=== PATIENT | male | born 1955 | race Caucasian/White ===

== ENCOUNTER → 2018-01-14 | Outpatient (CLI) | payer BC ==
[~2018-01-14] MED LIST: B12 TOP; IBUP-103 PO; NAPR1TAB9 PO; SILD100T PO; ZINC TOP
[2018-01-14 11:22] LABS: BLOOD UREA NITROGEN 14 mg/dl (7-18); CALCIUM 9.1 mg/dl (8.5-10.1); CARBON DIOXIDE 30 mmol/L (21-32); CHOLESTEROL 181 mg/dl (0-200); CREATININE 1.05 mg/dl (0.60-1.40); GLUCOSE 102 mg/dl (70-99); SODIUM 138 mmol/L (136-145)
[2018-01-14 11:27] LABS: LDL CHOLESTEROL CALCULATED 101 mg/dl
== END | disposition home or self-care (01) ==
LOC: C.LABBC 07:56
PROVIDERS: ATTEND Family Medicine
DX: Z00.00 Encounter for general adult medical examination without abnormal findings (principal); E78.5 Hyperlipidemia, unspecified; R73.03 Prediabetes; I10 Essential (primary) hypertension; Z12.5 Encounter for screening for malignant neoplasm of prostate

== ENCOUNTER 2019-09-22 07:57 | Inpatient (IN) ==
--- NOTE | 2019-08-24 11:48 | PAT Medication Instructions ---
Medication Instructions Date of Service August 24, 2019 Home Medications lisinopril 10 mg PO QAM sildenafil [Viagra] 100 mg PO DAILY PRN ibuprofen [Advil] 400 mg PO QID PRN ASK your surgeon for instructions ibuprofen [Advil] 400 mg PO QID PRN DO NOT take the morning of surgery lisinopril 10 mg PO QAM sildenafil [Viagra] 100 mg PO DAILY PRN Other Notes If you have any questions please call us at [phone] or [phone] or [phone] or [phone]
--- NOTE | 2019-08-28 11:53 | Anesthesiology Consultation ---
Date of Service August 28, 2019 Assessment & Plan (1) Encounter for pre-operative examination: Chart Review Chart Review: Acceptable Risk for Surgery and Patient seen in Pre Admission Testing Consults Requested none Teaching & Discussion Pre-Anesthesia Teaching/Discussion Notes: Instructed NPO after midnight before surgery,except medications with 15 cc of water. Medication instructions provided according to the PAT guidelines. History Surgery Operation Date: 09/22/19 10:00 Proposed Procedures p Right Anterior Total Hip Arthroplasty - Zeke Templeton DO Height/Weight Height: 5 ft 10 in Weight: 98 kg Allergies Allergy/AdvReac Type Severity Reaction Status Date / Time bee venom protein (honey bee) Allergy Mild local Verified 08/22/19 14:37 swelling Medications Home Medications Medication Instructions Recorded Confirmed Last Taken lisinopril 10 mg PO QAM 12/26/18 08/22/19 01/11/19 sildenafil [Viagra] 100 mg PO DAILY PRN 12/26/18 08/22/19 12/31/18 ibuprofen [Advil] 400 mg PO QID PRN 08/22/19 08/22/19 Unknown Past Medical History Medical History Cancer BCC (nose) Diverticulitis Hypertension Obesity Osteoarthritis Exercise / Class Metabolic Activity II 4-5 Yardwork/Stairs/Walk up hill (one flight of stairs (no chest pain/no sob)) Past Surgical History Surgical History History of arthroscopy LEFT KNEE History of bowel resection FOR DIVERTICULITIS History of colonoscopy History of colostomy reversal History of herniorrhaphy LEFT INGUINAL History of tooth extraction Hx of vasectomy Past Anesthesia History No Hx of Anesthesia Complications and No Family Hx of Anesthesia Complications History of PONV No Hx of PONV and No Hx of Motion Sickness Social History Smoking Status: Never smoker Do You Dip or Chew Tobacco: No Hx Alcohol Use: Yes Alcohol type: beer, wine and hard liquor alcohol intake frequency: a few times a week Hx Substance Use: No substance use type: does not use Review of Systems Patient denies chest pain, shortness of breath, dyspnea on exertion, joint pain, reflux, cough, wheezing, palpitations. Physical Exam Vital Signs VITALS BP 149/93 (patient states he forgot to take BP medication this AM/advised compliance importance) P 67 TEMP 98.1 SP02 95%RA RESP 18 PHYSICAL Full neck and c-spine range of motion. Full TMJ range of motion. TMD 3.5 finger breaths Mallampati Score 3 Dentition: several crowns "all over", temporary crown upper right side Lungs: clear throughout to auscultation Cardiac: regular rate and rhythm, no murmurs noted Spine: normal Carotid arteries: negative bruit Extremities: no edema Testing Laboratory Results 08/28/19 11:50 08/28/19 11:50 PT 10.5 Seconds (9.0-12.0) 08/28/19 11:50 INR 1.0 (0.9-1.1) 08/28/19 11:50 APTT 24.8 Seconds (21.0-31.0) 08/28/19 11:50 Blood Type O Positive 08/28/19 11:15 Antibody Screen NEGATIVE 08/28/19 11:15 Electrocardiogram Date: 08/28/19 Findings: + NSR @ (65) Chest X-Ray Date: 08/28/19 Findings: + NAD
--- NOTE | 2019-08-28 12:39 | XRay Report ---
XR chest Pre-admission PA/Lat HISTORY: Preop. COMPARISON: Chest 01/15/2014. FINDINGS: The lungs are clear. Cardiac silhouette is normal in size. No pleural effusions. No pneumot horax. IMPRESSION: No acute process. Electronically signed by: Adan Bonilla M.D. 08/28/2019 12:38 PM
[2019-08-28 13:32] LABS: Basophils # (auto) 0.03 K/uL (0-0.2); Basophils % (auto) 0.4 %; Eosinophils # (auto) 0.07 K/uL (0-0.5); Eosinophils % (auto) 0.9 %; Hemoglobin 15.3 g/dL (14.0-18.0); Immature Granulocytes # (auto) 0.02 K/uL (0.00-0.02); Immature Granulocytes % (auto) 0.3 %; Lymphocytes # (auto) 1.19 K/uL (1.2-3.4); Lymphocytes % (auto) 16.1 %; Mean Corpuscular Hemoglobin 31.1 pg (25-34); Mean Corpuscular Hgb Conc 33.3 g/dL (32-36); Mean Corpuscular Volume 93.5 fL (80-100); Monocytes % (auto) 8.1 %; Neutrophils % (auto) 74.2 %; Platelet Count 325 K/uL (130-400); RDW Coefficient of Variation 13.4 % (11.5-14.5); RDW Standard Deviation 45.5 fL (36.4-46.3); Red Blood Count 4.92 M/uL (4.7-6.1); White Blood Count 7.41 K/uL (4.8-10.8)
[2019-08-28 13:48] LABS: Partial Thromboplastin Ratio 0.9; Partial Thromboplastin Time 24.8 Seconds (21.0-31.0); Prothrombin Time 10.5 Seconds (9.0-12.0)
[2019-08-28 14:11] LABS: BUN Creatinine Ratio 23.3 (10-20); Calcium 9.2 mg/dl (8.5-10.1); Creatinine Clr Calc Pharmacy 83.4 ml/min; Est GFR (African American) 86.5; Est GFR (Non-African American) 74.7; Potassium 3.9 mmol/L (3.5-5.1)
--- NOTE | 2019-09-21 14:48 | History & Physical Report ---
Date of Service September 21, 2019 Assessment & Plan (1) Osteoarthritis of right hip: We will proceed with a right anterior total hip arthroplasty. Postoperatively he will be started on aspirin for DVT prophylaxis and kept overnight in the hospital for postoperative medical management. He plans to use energy physical therapy upon discharge. Present on Admission?: Yes History of Present Illness Chief Complaint: Primary osteoarthritis of the right hip Primary Care Provider: Cortney Ward MD Rnye is a pleasant 64-year-old male who has been complaining of chronic increasing right hip and groin pain. X-rays and clinical examination have been diagnostic for primary osteoarthritis of the right hip. After failing conservative treatment, he has elected proceed with a right total hip arthroplasty. Allergies Allergy/AdvReac Type Severity Reaction Status Date / Time bee venom protein (honey bee) Allergy Mild local Verified 08/22/19 14:37 swelling Home Medications Home Medications Medication Instructions Recorded Confirmed Type lisinopril 10 mg PO QAM 12/26/18 08/22/19 History sildenafil [Viagra] 100 mg PO DAILY PRN 12/26/18 08/22/19 History ibuprofen [Advil] 400 mg PO QID PRN 08/22/19 08/22/19 History Past Med/Surg History Medical History Cancer BCC (nose) Diverticulitis Hypertension Obesity Osteoarthritis Surgical History History of arthroscopy LEFT KNEE History of bowel resection FOR DIVERTICULITIS History of colonoscopy History of colostomy reversal History of herniorrhaphy LEFT INGUINAL History of tooth extraction Hx of vasectomy Social History Preferred Language: Czech Communication Ability: Effective Film Booker Required: No Beliefs That Will Affect Care: None Current Living Situation: Spouse Other Information That Helps Us Care for You: No Feels Safe at Home: Yes Safety Concerns: Feels Safe At This Time Smoking Status: Never smoker Do You Dip or Chew Tobacco: No ; Second Hand Exposure: No ; Hx Alcohol Use: Yes Alcohol type: beer, wine and hard liquor Hx Substance Use: No Review of Systems All systems reviewed & are unremarkable except as noted in HPI & below Physical Exam Constitutional: WD/WN, vitals as above Eyes: PERRL, conjunctivae normal, anicteric sclerae ENMT: external ear and nose normal, oropharynx normal Neck: trachea midline, no thyromegaly Respiratory: normal respiratory effort Cardiovascular: RRR, no murmur, no edema Gastrointestinal (Abdomen): normal bowel sounds, soft, nontender, no hepatosplenomegaly Musculoskeletal: Physical examination of the right hip reveals decreased range of motion with flexion, internal and external rotation. There is significant groin pain with forced internal rotation of the hip his leg lengths are essentially equal. Psychiatric: A+Ox3, euthymic affect Results & Data Diagnostic Findings Radiographs of the right hip and pelvis demonstrate advanced osteoarthritis with joint space narrowing osteophyte formation and [id number] articulation.
[~2019-09-22 07:57] MED LIST changes: +ACETAMINOPHEN 500 MG TAB PO SCH; -B12 TOP; +BUPIVACAINE 0.5 % 5 MG/1 ML PF 10ML VIAL ONE; +CEFAZOLIN 2000MG 2,000 MG/15 ML SYR IV SCH; +FAMOTIDINE 20 MG TAB PO SCH; +GABAPENTIN 600 MG DOSE PO SCH; -IBUP-103 PO; +LR 500ML BOLUS, THEN 15ML/HR IV SCH; +LR 60ML/HR IV SCH; +MIDAZOLAM HCL 1 MG/ML 2ML VIAL ONE; -NAPR1TAB9 PO; +ROPIVACAINE 0.5% HCL/PF 150 MG, BUPIVACAINE 0.5% MPF 30 ML, EPINEPHrine 30MG/30ML (OR U... INSTIL SCH; -SILD100T PO; +TRANEXAMIC ACID 1,000 MG **IV Intra-op IV SCH; +TRANEXAMIC ACID 1,000 MG **IV Pre-op IV SCH; -ZINC TOP; +fentaNYL citrate 100 MCG/2 ML VIAL ONE
--- NOTE | 2019-09-22 08:13 | History & Physical Bridge Note ---
Date of Service September 22, 2019 History & Physical Bridge Note I have examined the patient, reviewed the History & Physical and in the interval since the performance of the History & Physical I have noted the following changes of clinical significance: no changes noted
[2019-09-22] MEDS ORDERED: fentaNYL citrate 100 MCG/2 ML VIAL IV PRN (08:34)
[2019-09-22] MEDS ORDERED: ONDANSETRON INJ 2 MG/ML 2 ML VIAL IV PRN ×2 (08:34→12:42)
[2019-09-22] MEDS ORDERED: ePHEDrine sulfate 50 MG/ML AMP IV PRN (08:34)
[2019-09-22] MEDS ORDERED: ATROPINE SULFATE 0.1 MG/ML 10ML SYR IV PRN (08:34)
[2019-09-22] MEDS ORDERED: ORTHO JOINT ANESTHETIC ONE (08:47)
[2019-09-22] MEDS ORDERED: ONDANSETRON INJ 2 MG/ML 2 ML VIAL ONE (09:59)
[2019-09-22] MEDS ORDERED: PROPOFOL IV EMULSION 10 MG/ML 20 ML VIAL IV ONE ×3 (09:59→11:30)
[2019-09-22] MEDS ORDERED: LIDOCAINE HCL 2% 2 ML VIAL/AMP(20MG/ML) INFIL ONE (09:59)
--- NOTE | 2019-09-22 11:19 | Operative Report ---
PG Post Operative Report Pre & Post Diagnosis Operation Date: 09/22/19 10:20 Pre-Op Diagnosis: Right Hip Degenerative Joint Disease Post-Op Diagnosis: Right Hip Degenerative Joint Disease I identified the patient and participated in the time-out.: Yes Procedure Operation Date: 09/22/19 10:20 Actual Procedures p Right Anterior Total Hip Arthroplasty(Right) - Zeke Templeton DO Surgeon Zeke Templeton DO Substation Electrician Supervisor Zeke Carrero PAC Estimated Blood Loss 250 Findings Consistent with Post-Op Diagnosis Specimens Right femoral head Complications none Disposition Disposition: Recovery Room Indications Ryne is a pleasant 64-year-old male who presented my office with chronic increasing right hip and groin pain. X-rays and clinical examination were diagnostic for primary osteoarthritis of the right hip. After failing conservative treatment, he elected to proceed with a right total hip arthroplasty. Description of Procedure Implants used Biomet Taperloc total hip arthroplasty system with a size 6 standard offset Taperloc stem, a 54 mm G7 cup with a 25mm screw, an E1 polyethylene liner, a 40 mm ceramic head with a -6 neck. Patient arrived at the hospital for the above procedure. They were seen in the preoperative holding area and the operative extremity was identified and signed. They were given a spinal anesthetic. They were given a preoperative antibiotic and TXA. They were taken back To the operating room and laid on the table in the supine position. The leg was brought out through a Puristst leg positioner. The hip was then prepped and draped in sterile fashion. A timeout was done and the patient and the operative extremity was properly identified. An anterior approach was used. Dissection was taken down through the fascia and the tensor muscle belly was retracted laterally and the rectus was retracted medially. The circumflex vessels were identified and ligated. The capsule was then incised and tagged for later repair. The femoral neck was then cut and the femoral head was removed. The acetabulum was exposed. Time was spent doing a complete circumferential labral release. Sequential reaming of the acetabulum up to a size 53 reamer was done. Final reamings were done under fluoroscopy to ensure appropriate version. A Biomet 54 mm G7 cup was then impacted into place. A single 25 mm screw was placed. The E1 polyethylene liner was then snapped into place. Surrounding soft tissues were then injected with 100 cc of an orthopedic pain control cocktail. The proximal femur was then exposed. Sequential broaching up to a size 6 broach was done. Off that broach a size 40 head with a -6 neck was trialed. The hip was reduced and fluoroscopic images showed anatomic alignment of the implants in acceptable length. The broach was removed. The final size 6 standard offset Taperloc stem was then impacted into place. A ceramic 40 mm head with a -6 neck was then impacted into place in the hip was reduced. Final fluoroscopic images showed anatomic reduction of the hip. The capsule was then closed with #1 Vicryl suture. A dilute betadyne lavage was then done for 3 minutes. The joint was then irrigated with normal saline solution. The fascia was closed with #1 PDS suture. Skin was closed with 2-0 Vicryl, azucena, and a Shana VAC dressing. The patient was then transferred to a hospital bed and taken to the post anesthesia care unit in stable condition. They tolerated the procedure well. I attest to the content of the Intraoperative Record and any orders documented therein. Any exceptions are noted below.
--- NOTE | 2019-09-22 11:28 | Fluoroscopy Report ---
FL hip RT 1V CLINICAL HISTORY: RT ANTERIOR HIPhip replacement COMPARISON STUDY: None FLUOROSCOPY TIME: 40 seconds NUMBER OF FLUOROSCOPIC IMAGES: 2 FINDINGS: Image intensifier was utilized intraoperatively for a total right hip arthroplasty. IMPRESSION: Image intensifier utilized intraoperatively for a total right hip arthroplasty. The above report was generated using voice recognition software. It may contain grammatical, syntax or spelling errors. Electronically signed by: Juve Moffett M.D. 09/22/2019 11:27 AM
--- NOTE | 2019-09-22 12:09 | Anesthesiology Progress Note ---
Date of Service September 22, 2019 Anesthesia Post Procedure Vital Signs Vital Signs: Temp Pulse Pulse Resp BP Pulse Ox 09/22/19 12:05 60 16 111/91 98 09/22/19 11:55 97.0 F L 71 20 114/77 96 09/22/19 08:56 98.2 F 63 20 143/92 H 98 Transfer of Care Handoff Completed per policy Notes Mental Status: alert / awake / arousable and participated in evaluation Patient Amnestic to Procedure: Yes Nausea / Vomiting: adequately controlled Pain: adequately controlled Airway Patency, RR, SpO2: stable & adequate BP & HR: stable & adequate Hydration State: stable & adequate Neuraxial Anesthesia: was administered and sensory block is resolving Anesthetic Complications: no major complications apparent and Pt Satisfied with anesthetic care
--- NOTE | 2019-09-22 12:26 | XRay Report ---
XR hip 1V RT w pelvis CLINICAL HISTORY: IN PACU - A/P PELVIS and LATERAL HIP COMPARISON: 04/01/2015 DISCUSSION: Anatomic alignment posttotal right hip arthroplasty. Could contact between prosthetic and underlying bone. Expected soft tissue postoperative change. IMPRESSION: Anatomic alignment right hip post total arthroplasty. The above report was generated using voice recognition software. It may contain grammatical, syntax or spelling errors. Electronically signed by: Juve Moffett M.D. 09/22/2019 12:25 PM
[2019-09-22] MEDS ORDERED: MAGNESIUM HYDROXIDE SUSP 30 ML UDC PO PRN (12:42)
[2019-09-22] MEDS ORDERED: SODIUM CHLORIDE 0.9% 1000ML 1,000 ML IV SCH (12:42)
[2019-09-22] MEDS ORDERED: BISACODYL 10 MG SUPP PR PRN (12:42)
[2019-09-22] MEDS ORDERED: NON-FORMULARY MEDICATION (Sildenafil [Viagra] 100 MG) PO PRN (12:42)
[2019-09-22] MEDS ORDERED: NALOXONE HCL 0.4 MG/1 ML VIAL/CARP IV PRN (12:42)
[2019-09-22] MEDS ORDERED: OXYCODONE HCL IR 5 MG TAB (IMMEDIATE RELEASE) PO PRN (12:42)
[2019-09-22] MEDS ORDERED: HYDROmorphone INJ 0.5 MG/0.5 ML SYR IV PRN (12:42)
[2019-09-22] MEDS ORDERED: METOCLOPRAMIDE HCL INJ 5 MG/ML 2 ML VIAL IV PRN (12:42)
[2019-09-22] MEDS: ACETAMINOPHEN 500 MG TAB PO SCH ×2 (13:52→21:17)
[2019-09-22] MEDS: KETOROLAC 30 MG/ML VIAL IV SCH ×2 (13:54→19:23)
[2019-09-22] MEDS ORDERED: INFLUENZA VIRUS QUAD VACCINE 0.5 ML SYR IM ONE (15:45)
[2019-09-22] MEDS ORDERED: INFLUENZA ADMINISTRATION CHARGE ONE (15:45)
[2019-09-22] MEDS: CEFAZOLIN 2000MG 2,000 MG/15 ML SYR IV SCH (18:42)
[2019-09-22] MEDS: DOCUSATE SODIUM 100 MG CAP PO SCH (20:30)
[2019-09-22] MEDS: ASPIRIN 81 MG ECTAB PO SCH (20:30)
[2019-09-22] MEDS ORDERED: SENNA 8.6 MG TAB PO SCH (21:00)
[2019-09-23] MEDS: CEFAZOLIN 2000MG 2,000 MG/15 ML SYR IV SCH (01:21)
[2019-09-23] MEDS: KETOROLAC 30 MG/ML VIAL IV SCH ×3 (01:21→13:42)
[2019-09-23] MEDS: ACETAMINOPHEN 500 MG TAB PO SCH ×2 (05:45→13:42)
[2019-09-23 05:51] LABS: Eosinophils # (auto) 0.01 K/uL (0-0.5); Eosinophils % (auto) 0.1 %; Hematocrit (blood only) 36.9 % (42-52); Hemoglobin 12.4 g/dL (14.0-18.0); Immature Granulocytes # (auto) 0.03 K/uL (0.00-0.02); Immature Granulocytes % (auto) 0.3 %; Lymphocytes # (auto) 0.96 K/uL (1.2-3.4); Lymphocytes % (auto) 8.9 %; Mean Corpuscular Hemoglobin 31.3 pg (25-34); Mean Corpuscular Hgb Conc 33.6 g/dL (32-36); Mean Corpuscular Volume 93.2 fL (80-100); Monocytes # (auto) 1.01 K/uL (0.11-0.59); Monocytes % (auto) 9.3 %; Neutrophils # (auto) 8.83 K/uL (1.4-6.5); Neutrophils % (auto) 81.4 %; Platelet Count 259 K/uL (130-400); RDW Coefficient of Variation 13.3 % (11.5-14.5); RDW Standard Deviation 45.6 fL (36.4-46.3); Red Blood Count 3.96 M/uL (4.7-6.1); White Blood Count 10.84 K/uL (4.8-10.8)
[2019-09-23 06:19] LABS: BUN Creatinine Ratio 18.4 (10-20); Calcium 8.5 mg/dl (8.5-10.1); Creatinine Clr Calc Pharmacy 81.2 ml/min; Est GFR (African American) 84.6; Potassium 3.9 mmol/L (3.5-5.1)
[2019-09-23] MEDS: ASPIRIN 81 MG ECTAB PO SCH (08:48)
[2019-09-23] MEDS: DOCUSATE SODIUM 100 MG CAP PO SCH (08:49)
[2019-09-23] MEDS ORDERED: LISINOPRIL 10 MG TAB PO SCH (09:00)
[2019-09-23] MEDS ORDERED: MULTIVITAMIN TAB PO SCH (09:00)
--- NOTE | 2019-09-23 09:04 | Orthopedic Progress Note ---
Date of Service September 23, 2019 Assessment & Plan (1) History of right hip replacement: Overall he is doing very well. He is not having much pain in the right hip. He will be seen by physical therapy today for ambulation. He is on aspirin for DVT prophylaxis. He can be discharged home later today. He will follow-up with orthopedics in 2 weeks. Present on Admission?: Yes Subjective Ryne was seen and examined at bedside this morning. Overall is doing very well. He is not having much pain in the right hip. He is happy with his progress. He has already been up and ambulating into the hallways. He has no complaints. Physical Exam Musculoskeletal: On physical examination of the right hip, the Shana VAC dressing is to suction. His leg lengths are equal. He has active dorsiflexion and plantarflexion of the right ankle. Sensation is intact throughout. Results & Data Vital Signs (Past 12 Hours) Vital Signs Temp Pulse Resp BP Pulse Ox 09/23/19 08:21 36.8 C 64 18 144/79 H 97 09/23/19 03:45 36.5 C 53 L 16 123/76 97 09/22/19 23:20 36.5 C 61 16 124/77 97 Laboratory Results H & H 08/28/19 09/23/19 Range/Units 11:50 05:28 Hgb 15.3 12.4 L (14.0-18.0) g/dL Hct 46.0 36.9 L (42-52) % Coagulation 08/28/19 Range/Units 11:50 INR 1.0 (0.9-1.1) Diagnostic Findings Postoperative x-rays of the right hip show the prosthesis to be in anatomic alignment without any evidence of fracture, dislocation, or loosening. PG Care Time/CCT Total # of Minutes Spent Total Time Spent with Patient: Total time spent is greater than 50% in coordination of care (as documented) at patient's floor/unit and/or counseling patient:
--- NOTE | 2019-09-23 09:05 | Discharge Summary ---
Date of Service September 23, 2019 Admission HPI Per Admitting Provider Ryne is a pleasant 64-year-old male who has been complaining of chronic increasing right hip and groin pain. X-rays and clinical examination have been diagnostic for primary osteoarthritis of the right hip. After failing conservative treatment, he has elected proceed with a right total hip arthroplasty. Principal Diagnosis Right total hip arthroplasty Discharge Data Allergies Allergy/AdvReac Type Severity Reaction Status Date / Time bee venom protein (honey bee) Allergy Mild local Verified 09/22/19 08:54 swelling Consultations 09/23/19 08:00 Consult Case Management - Discharge Planning Routine Procedures Performed Operation Date: 09/22/19 10:20 Actual Procedures p Right Anterior Total Hip Arthroplasty(Right) - Zeke Templeton DO Ordered Studies 09/22/19 10:20 FL fluoroscopy <1hr Routine FL hip RT 1V Routine Hospital Course (1) History of right hip replacement: On September 22, 2019 lAban arrived at [facility] and underwent a right anterior total hip arthroplasty without complication. He had a spinal anesthetic and a right interscalene nerve block. Postoperatively he was started on aspirin for DVT prophylaxis and discharged to general orthopedic floors. His hospital course was uneventful. On postop day #1 his H&H was stable and his pain was well controlled. He was able to ambulate well with physical therapy. He was then discharged home. He will follow-up with orthopedics in 2 weeks. Total Time Total Time Spent Total Time Spent (In Minutes): 20 Discharge Plan Discharge Items Reason For Visit: Right Hip Degenerative Joint Disease Medications and DC Order Prescriptions: No Action sildenafil [Viagra] 100 mg Tablet 100 mg PO DAILY PRN (Reason: Erectile Dysfunction) RF: 0 lisinopril 10 mg Tablet 10 mg PO QAM RF: 0 ibuprofen [Advil] 200 mg Tablet 400 mg PO QID PRN (Reason: Pain) RF: 0 Admission Data Admit Date/Time: 09/22/19 11:56 Attending Provider: Zeke Templeton Admit Provider: Zeke Templeton Primary Care Provider: Cortney Ward
--- NOTE | 2019-09-23 14:42 | Anesthesiology Progress Note ---
Date of Service September 23, 2019 Anesthesia Post Procedure Vital Signs Vital Signs: Temp Pulse Resp BP Pulse Ox Pulse Ox Pulse Ox 09/23/19 10:40 97 97 09/23/19 09:37 36.8 C 64 18 144/79 H 97 09/23/19 08:21 36.8 C 64 18 144/79 H 97 09/23/19 03:45 36.5 C 53 L 16 123/76 97 09/22/19 23:20 36.5 C 61 16 124/77 97 09/22/19 19:34 36.6 C 70 16 152/76 H 94 09/22/19 15:24 36.8 C 65 18 125/76 94 Pain Intensity Head: Pain Intensity: 5 Right Hip: Pain Intensity: 2 Notes Mental Status: alert / awake / arousable Patient Amnestic to Procedure: Yes Nausea / Vomiting: adequately controlled Pain: adequately controlled Airway Patency, RR, SpO2: stable & adequate BP & HR: stable & adequate Hydration State: stable & adequate Anesthetic Complications: no major complications apparent and Pt Satisfied with anesthetic care
== END 2019-09-23 15:59 | disposition home or self-care (01) | DRG 470 ==
LOC: ASU 07:57 → 3E 11:56

== ENCOUNTER 2025-02-05 16:39 | Observation (INO) ==
[2025-02-05] MEDS: SODIUM CHLORIDE 0.9% 1,000 ML IV SCH (17:11)
[2025-02-05] MEDS: SODIUM CHLORIDE 0.9% 500 ML IV ONE (17:12)
[2025-02-05] MEDS: ACETAMINOPHEN 1,000 MG/100 ML VIAL IV STA (17:12)
[2025-02-05] MEDS: CEFEPIME 2000MG 2,000 MG/20 ML SYR IV STA (17:17)
[2025-02-05 17:23] LABS: Appearance Urine Clear (Clear); Bacteria Urine Automated None Seen (None Seen); Bilirubin Urine Negative (Negative); Blood Urine Negative (Negative); Cast Urine Automated 0-2 /lpf (0-2); Color Urine Yellow; Epithelial Cell Urine Auto 0-2 /hpf (0-2); Glucose Urine UA Negative (Negative); Ketones Urine Negative (Negative); Leukocyte Esterase Urine Negative (Negative); Nitrite Urine Negative (Negative); Protein Urine 1+ (Negative); RBC Urine Automated 0-2 /hpf (0-2); Specific Gravity Urine 1.019 (1.000-1.030); Urobilinogen Urine Negative (Negative); WBC Urine Automated 0-5 /hpf (0-5)
[2025-02-05 17:23] LABS: Basophils # (auto) 0.03 K/uL (0.00-0.20); Basophils % (auto) 0.3 %; Eosinophils # (auto) 0.06 K/uL (0.00-0.50); Eosinophils % (auto) 0.7 %; Hematocrit (blood only) 38.6 % (42.0-52.0); Hemoglobin 12.8 g/dl (14.0-18.0); Immature Granulocytes # (auto) 0.07 K/uL (0.01-0.20); Immature Granulocytes % (auto) 0.8 %; Lymphocytes # (auto) 0.55 K/uL (1.20-3.40); Lymphocytes % (auto) 6.3 %; Mean Corpuscular Hemoglobin 31.1 pg (25.0-34.0); Mean Corpuscular Hgb Conc 33.2 g/dL (32.0-36.0); Mean Corpuscular Volume 93.9 fL (80.0-100.0); Monocytes % (auto) 6.8 %; Neutrophils # (auto) 7.49 K/uL (1.40-6.50); Neutrophils % (auto) 85.1 %; Platelet Count 409 K/uL (130-400); RDW Coefficient of Variation 15.9 % (11.5-14.5); RDW Standard Deviation 54.3 fL (36.4-46.3); Red Blood Count 4.11 M/uL (4.70-6.10)
[2025-02-05 17:40] LABS: Albumin Level 4.5 gm/dl (3.4-5.0); Bilirubin Direct 0.1 mg/dl (0-0.2); Bilirubin,Total 0.5 mg/dl (0.2-1.0); Magnesium 1.8 mg/dl (1.7-2.4); Potassium 4.3 mmol/L (3.5-5.1); Total Protein 7.5 gm/dl (6.0-8.3)
[2025-02-05 17:42] LABS: Prothrombin Time 10.9 Seconds (9.0-12.0)
[2025-02-05 17:45] LABS: Troponin I High Sensitivity 9.7 pg/ml (0-20)
--- NOTE | 2025-02-05 18:38 | Emergency Department Note ---
Impression & Plan Fever, Immunocompromised state, Rigors ED Provider Note NAME: SUSANA ALANIZ AGE: 69 SEX: M : 1955 ARRIVES VIA: Walk-In INFORMANT: Patient ED PROVIDER(S): Christiano Reveles MD CHIEF COMPLAINT: Fevers, rigors, referred. PLAN: Disposition: Admit MEDICAL DECISION MAKING: The patient is a pleasant 69-year-old gentleman with a past medical history of thrombocytosis on hydroxyurea, hypertension who presents to the emergency department via walk-in, accompanied by his for evaluation of fevers and chills with rigors that developed last night and became severe today. The patient contacted his oncology office at the cancer center and was instructed to come emergency department for assessment given his immunocompromise status. Patient has any cough or congestion. He reported some nausea denies vomiting. Denies any diarrhea or urinary symptoms. On presentation the patient is febrile to 38.6, heart in the 100s and blood pressure 150/70s. He appears clinically dry. Exam is otherwise unremarkable. Lungs are clear. Abdomen is benign. EKG without overt acute ischemia. CXR demonstrates prominent bilateral bronchovascular markings which may be infectious or inflammatory but in setting of patient denying any respiratory symptoms. WBC within normal limits. Platelets 409, similar to recent and decreased from prior levels in December in the 600s. H/H similar to prior. Chemistry without metabolic acidosis. Electrolytes LFTs unremarkable. Lactic acid 1.2, within normal limits. High-sensitivity troponin 9.7, within normal limits. Procalcitonin is not elevated. UA without evidence of infection. Respiratory BioFire was negative. Blood cultures were obtained and patient was treated with empiric dose of cefepime given immunocompromise status. Given febrile illness without clear source in the setting of immunocompromised state patient and his agree with plan for admission for further management. Dr. Buchanan, [facility] to evaluate the patient for admission. Further management per admitting team. Triage Nursing notes reviewed and agree them. Prior/external medical records reviewed Vital Signs: reviewed Differential diagnosis: Viral syndrome, otitis, pharyngitis, pneumonia, influenza, meningitis, urinary tract infection, sepsis, bacteremia, as well as other pathologies. ER treatment provided: See below. Diagnostics interpreted by me: ECG: Normal sinus rhythm, 96 bpm, no ectopy, no overt ST elevation or depression, QTc 406, QRS 70. Cardiac Monitoring: An order for continuous cardiac monitoring was placed and demonstrated Normal sinus rhythm, 96 bpm, no ectopy. Laboratory studies: See below Imaging studies: See below Consultation(s): Dr. Buchanan [facility] [place]. HPI: The patient is a pleasant 69-year-old gentleman with a past medical history of thrombocytosis on hydroxyurea, hypertension who presents to the emergency department via walk-in, accompanied by his for evaluation of fevers and chills with rigors that developed last night and became severe today. The patient contacted his oncology office at the cancer center and was instructed to come emergency department for assessment given his immunocompromise status. Patient has any cough or congestion. He reported some nausea denies vomiting. Denies any diarrhea or urinary symptoms. ROS: See above HPI for pertinent positives & negatives. A total of 10 systems reviewed and were otherwise negative. VITALS:See Below PHYSICAL EXAMINATION: GENERAL: Awake, alert, in no distress HENT: Normocephalic, atraumatic. Oropharynx with dry mucous membranes and otherwise unremarkable. EYES: Normal conjunctiva. Sclera non-icteric. NECK: Supple. No nuchal rigidity. FROM. No JVD. RESPIRATORY: Clear to auscultation. CARDIAC: Tachycardic rate, normal rhythm. Extremities warm and well perfused. Pulses equal. ABDOMEN: Soft, non-distended. No tenderness to palpation. No rebound or guarding. No masses. MUSCULOSKELETAL: Chest examination reveals no tenderness. The back is symmetrical on inspection without obvious abnormality. There is no CVA tenderness to palpation. No joint edema. LOWER EXTREMITIES: Calves are equal size bilaterally and non-tender. No edema. No discoloration. NEURO: Normal sensorium. No sensory or motor deficits noted. CNII-XII grossly intact. No tremors or rigors at this time. SKIN: No rash or jaundice noted. Christiano Reveles MD Past Med/Surg History Problem List (Updated 02/06/25 @ 20:48 by Christiano Reveles MD) Alcohol use disorder Rigors (Acute) Immunocompromised state (Acute) Fever (Acute) Encounter for pre-operative examination Pre-diabetes Raynaud disease History of joint replacement Ulcerative proctitis Hypertension Medical History Essential thrombocytosis and CALR+ - following with [facility]. managing with Hydroxyurea daily Spontaneous pneumothorax hx - 12/2013. no problems since. Hypertension Ulcerative proctitis hx. Raynaud disease Pre-diabetes monitoring, life style change Hx of diverticulitis of colon Hx of skin cancer, basal cell Obesity Osteoarthritis Surgical History H/O left inguinal hernia repair History of right hip replacement 09/2019 History of colonoscopy with polypectomy History of arthroscopy Left Knee Hx of vasectomy History of colostomy reversal reversed 2013 History of bowel resection r/t diverticulitis History of tooth extraction Family History Mother No problems noted. Father Bladder cancer Kidney disease Brother Cancer testicular Sister Hypothyroidism Other No family history of adverse response to anesthesia Denies family history of Ovarian cancer Prostate cancer Myocardial infarction Breast cancer Colorectal cancer Social History Smoking Status: Never smoker Second Hand Exposure: No; Do You Dip or Chew Tobacco: No; Tobacco Cessation Education Requested by Patient: No Hx Alcohol Use: Yes Alcohol type: hard liquor Alcohol Intake Frequency: 4 or More x per/Week Hx Substance Use: No Preferred Language: Hebrew Communication Ability: Effective Visual Impairment: Partially Limited Hearing Ability: Normal Housekeeping Laundry Worker Required: No Beliefs That Will Affect Care: None marital status: Current Living Situation: Spouse current occupational status: retired How many Children do You have: 4 Other Information That Helps Us Care for You: No Feels Safe at Home: Yes Safety Concerns: Feels Safe At This Time Childhood Exposure to Second-Hand Smoke: Yes Diet: regular caffeine: Yes during the past year weight has: remained stable Dental Care, Regularly: Yes Physical Activity Frequency: 1-2 Times per Week Seatbelt Use: always Sunscreen Use: Yes Assistive Devices: None Allergies Allergies Allergy/AdvReac Type Severity Reaction Status Date / Time bee venom protein (honey bee) Allergy Intermediate local Verified 02/05/25 18:19 swelling Home Meds Home Medications Medication Instructions Recorded Confirmed glucosamine-chondroitin 500 mg-400 1 cap PO DAILY 08/07/24 02/05/25 mg capsule omega 5-tun-pld-fish oil 1,000 mg 1 cap PO DAILY 10/13/24 02/05/25 (120 mg-180 mg) capsule (Fish Oil) hydroxyurea 500 mg capsule 500 mg PO QAM 01/24/25 02/05/25 acetaminophen 500 mg tablet 500 - 1,000 mg PO Q6H PRN Pain 02/05/25 02/05/25 (Tylenol Extra Strength) ibuprofen 200 mg tablet (Advil) 200 - 600 mg PO Q6H PRN Pain 02/05/25 02/05/25 Previous Rx's Medication Instructions Recorded amoxicillin 500 mg tablet 2,000 mg (4 x 500 mg) PO ONCE PRN 01/09/20 prophylaxis #4 tabs sildenafil 100 mg tablet (Viagra) 50 - 100 mg (0.5 - 1 x 100 mg) PO 06/25/23 DAILY PRN Erectile Dysfunction #20 tabs lisinopril 10 mg tablet 10 mg PO QAM #90 tabs 11/08/24 cyanocobalamin (vitamin B-12) 1,000 mcg PO DAILY #30 tabs 02/06/25 1,000 mcg tablet Results & Data (ED) Vital Signs Vital Signs - 24 hr 02/05/25 20:45 02/05/25 21:00 Pulse Rate [Apical] 96 H 94 H Respiratory Rate 18 16 Respiratory Effort / Characteristics Non-Labored Spontaneous Non-Labored Spontaneous Blood Pressure [Right Arm] 149/87 H Blood Pressure Mean [Right Arm] 107 Pulse Oximetry 96 96 Oxygen Delivery Method Room Air Room Air Laboratory Data Attestation: I reviewed the patient's lab results. 02/06/25 05:16 02/06/25 05:16 Lab Results 02/05/25 02/05/25 02/05/25 Range/Units 16:55 17:01 17:18 WBC 8.80 (4.8-10.8) K/ul RBC 4.11 L (4.70-6.10) M/uL Hgb 12.8 L (14.0-18.0) g/dl Hct 38.6 L (42.0-52.0) % MCV 93.9 (80.0-100.0) fL MCH 31.1 (25.0-34.0) pg MCHC 33.2 (32.0-36.0) g/dL RDW Std Deviation 54.3 H (36.4-46.3) fL RDW Coeff of Rhiannon 15.9 H (11.5-14.5) % Plt Count 409 H (130-400) K/uL MPV 10.0 (9.4-12.4) fL Immature Gran % (Auto) 0.8 % Neut % (Auto) 85.1 % Lymph % (Auto) 6.3 % Centre % (Auto) 6.8 % Eos % (Auto) 0.7 % Baso % (Auto) 0.3 % Neut # (Auto) 7.49 H (1.40-6.50) K/uL Lymph # (Auto) 0.55 L (1.20-3.40) K/uL Centre # (Auto) 0.60 H (0.11-0.59) K/uL Eos # (Auto) 0.06 (0.00-0.50) K/uL Baso # (Auto) 0.03 (0.00-0.20) K/uL Immature Gran # (Auto) 0.07 (0.01-0.20) K/uL PT 10.9 (9.0-12.0) Seconds INR 1.0 (0.9-1.1) Sodium 136 (136-145) mmol/L Potassium 4.3 (3.5-5.1) mmol/L Chloride 100 (98-107) mmol/L Carbon Dioxide 28 (21-32) mmol/L Anion Gap 8 (3-11) BUN 23 (6-23) mg/dl Creatinine 1.00 (0.6-1.4) mg/dl Est Cr Clr Drug Dosing 81.0 ml/min eGFR 81.47 BUN/Creatinine Ratio 23.0 H (10-20) Glucose 102 H (70-99(Fasting)) mg/dl Lactate 1.2 (0.4-2.0) mmol/L Calcium 9.0 (8.6-10.3) mg/dl Magnesium 1.8 (1.7-2.4) mg/dl Total Bilirubin 0.5 (0.2-1.0) mg/dl Direct Bilirubin 0.1 (0-0.2) mg/dl AST 24 (13-39) U/L ALT 10 (7-52) U/L Alkaline Phosphatase 62 (34-104) U/L Troponin I High Sens 9.7 (0-20) pg/ml Total Protein 7.5 (6.0-8.3) gm/dl Albumin 4.5 (3.4-5.0) gm/dl Lipase 33 (11-82) U/L Vitamin B12 (180-914) pg/ml Folate (>5.38) ng/ml Procalcitonin 0.21 (0-0.5) ng/ml Urine Color Yellow Urine Appearance Clear (Clear) Urine pH 6.0 (4.5-7.5) Ur Specific [place] 1.019 (1.000-1.030) Urine Protein 1+ H (Negative) Urine Glucose (UA) Negative (Negative) Urine Ketones Negative (Negative) Urine Blood Negative (Negative) Urine Nitrite Negative (Negative) Urine Bilirubin Negative (Negative) Urine Urobilinogen Negative (Negative) Ur Leukocyte Esterase Negative (Negative) Urine WBC (Auto) 0-5 (0-5) /hpf Urine RBC (Auto) 0-2 (0-2) /hpf U Hyaline Cast (Auto) 0-2 (0-2) /lpf U Epithel Cells (Auto) 0-2 (0-2) /hpf Urine Bacteria (Auto) None Seen (None Seen) Nasal Screen MRSA (PCR) (Negative) 02/05/25 02/05/25 Range/Units 17:56 20:01 WBC (4.8-10.8) K/ul RBC (4.70-6.10) M/uL Hgb (14.0-18.0) g/dl Hct (42.0-52.0) % MCV (80.0-100.0) fL MCH (25.0-34.0) pg MCHC (32.0-36.0) g/dL RDW Std Deviation (36.4-46.3) fL RDW Coeff of Rhiannon (11.5-14.5) % Plt Count (130-400) K/uL MPV (9.4-12.4) fL Immature Gran % (Auto) % Neut % (Auto) % Lymph % (Auto) % Centre % (Auto) % Eos % (Auto) % Baso % (Auto) % Neut # (Auto) (1.40-6.50) K/uL Lymph # (Auto) (1.20-3.40) K/uL Centre # (Auto) (0.11-0.59) K/uL Eos # (Auto) (0.00-0.50) K/uL Baso # (Auto) (0.00-0.20) K/uL Immature Gran # (Auto) (0.01-0.20) K/uL PT (9.0-12.0) Seconds INR (0.9-1.1) Sodium (136-145) mmol/L Potassium (3.5-5.1) mmol/L Chloride (98-107) mmol/L Carbon Dioxide (21-32) mmol/L Anion Gap (3-11) BUN (6-23) mg/dl Creatinine (0.6-1.4) mg/dl Est Cr Clr Drug Dosing ml/min eGFR BUN/Creatinine Ratio (10-20) Glucose (70-99(Fasting)) mg/dl Lactate (0.4-2.0) mmol/L Calcium (8.6-10.3) mg/dl Magnesium (1.7-2.4) mg/dl Total Bilirubin (0.2-1.0) mg/dl Direct Bilirubin (0-0.2) mg/dl AST (13-39) U/L ALT (7-52) U/L Alkaline Phosphatase (34-104) U/L Troponin I High Sens (0-20) pg/ml Total Protein (6.0-8.3) gm/dl Albumin (3.4-5.0) gm/dl Lipase (11-82) U/L Vitamin B12 292 (180-914) pg/ml Folate 18.94 (>5.38) ng/ml Procalcitonin (0-0.5) ng/ml Urine Color Urine Appearance (Clear) Urine pH (4.5-7.5) Ur Specific [place] (1.000-1.030) Urine Protein (Negative) Urine Glucose (UA) (Negative) Urine Ketones (Negative) Urine Blood (Negative) Urine Nitrite (Negative) Urine Bilirubin (Negative) Urine Urobilinogen (Negative) Ur Leukocyte Esterase (Negative) Urine WBC (Auto) (0-5) /hpf Urine RBC (Auto) (0-2) /hpf U Hyaline Cast (Auto) (0-2) /lpf U Epithel Cells (Auto) (0-2) /hpf Urine Bacteria (Auto) (None Seen) Nasal Screen MRSA (PCR) Negative (Negative) Administered Medications Acetaminophen (Acetaminophen 325 Mg Tab) 650 mg PO Q4H PRN PRN Reason: Pain or Fever Stop: 03/08/25 00:54 Last Admin: 02/06/25 15:04 Dose: 650 mg Documented By: Admin: 02/06/25 07:43 Dose: 650 mg Documented By: Admin: 02/06/25 01:07 Dose: 650 mg Documented By: APARNA Thiamine HCl 100 mg/ Syringe 10 mls @ 2 mls[facility] Stop: 03/08/25 08:59 Last Admin: 02/06/25 07:46 Dose: 2 mls/min Documented By: MALI Folic Acid 1 mg/ Syringe 10 mls @ 5 mls/min IV [facility] Stop: 03/08/25 08:59 Last Admin: 02/06/25 07:45 Dose: 5 mls/min Documented By: MALI Lisinopril (Lisinopril 10 Mg Tab) 10 mg PO [facility] Stop: 03/08/25 08:59 Last Admin: 02/06/25 08:18 Dose: 10 mg Documented By: MALI Discontinued Medications Azithromycin (Azithromycin 250 Mg Tab) 500 mg PO NOW ONE Stop: 02/06/25 16:12 Last Admin: 02/06/25 16:41 Dose: 500 mg Documented By: MALI Sodium Chloride (Nss) 1,000 mls @ 999 mls/hr IV .Q1H1M JOIE Stop: 02/05/25 19:00 Last Infusion: 02/05/25 19:42 Dose: Infused Documented By: Admin: 02/05/25 18:40 Dose: 999 mls/hr Documented By: Infusion: 02/05/25 18:40 Dose: Infused Documented By: Admin: 02/05/25 17:11 Dose: 999 mls/hr Documented By: MADAY Sodium Chloride (Nss) 500 mls @ 999 mls/hr IV .Q31M ONE Stop: 02/05/25 17:24 Last Infusion: 02/05/25 18:10 Dose: Infused Documented By: Admin: 02/05/25 17:12 Dose: 999 mls/hr Documented By: MADAY Acetaminophen (Ofirmev) 1,000 mg in 100 mls @ 400 mls/hr IV NOW STA Stop: 02/05/25 17:08 Last Infusion: 02/05/25 18:10 Dose: Infused Documented By: Admin: 02/05/25 17:12 Dose: 400 mls/hr Documented By: MADAY Cefepime HCl (Maxipime 2000mg) 2,000 mg in 20 mls @ 5 mls/min IV NOW STA; Protocol Stop: 02/05/25 16:57 Last Admin: 02/05/25 17:17 Dose: 5 mls/min Documented By: MADAY Thiamine HCl 100 mg/ Syringe 10 mls @ 2 mls/min IV NOW STA Stop: 02/05/25 21:16 Last Admin: 02/05/25 21:56 Dose: 2 mls/min Documented By: MADAY Folic Acid 1 mg/ Syringe 10 mls @ 5 mls/min IV NOW STA Stop: 02/05/25 21:13 Last Admin: 02/05/25 21:56 Dose: 5 mls/min Documented By: MADAY Imaging Data Radiologist's Impression: Chest X-Ray 02/05/25 16:55 EXAM: XR chest 1V portable CLINICAL HISTORY: Sepsis TECHNIQUE: An X-ray image of the chest is obtained in AP projection. COMPARISON: CT 01/02/2025 - CR 08/28/2019 FINDINGS: Pulmonary Parenchyma: Prominent bilateral bronchovascular markings. No evidence of consolidation, collapse, or focal opacities. No pulmonary nodules are identified. No evidence of pleural effusion or pleural thickening. Heart and Mediastinum: Despite portable projection, there is a normal configuration of the mediastinum and the cardiac size is normal. Bony Thorax: Bony thorax appears intact without fractures or deformities. Soft Tissues: Soft tissues overlying the chest wall are unremarkable. Cardiac monitoring electrodes. IMPRESSION: 1. Prominent bilateral bronchovascular markings. This is a new finding. 2. These could probably represent early/mild inflammatory/infectious etiology. 3. Correlate clinically. Electronically signed by Balaji Cano 02-05-2025 7:18 PM Discharge Plan Visit Data Chief Complaint: Illness Stated Complaint: CHILLS FOR PAST 2 HOURS ED Provider: Christiano Reveles Discharge Problem: Fever, Immunocompromised state, Rigors Patient Disposition: Admitted As Inpatient Discharge Instructions Interventions: ED Discharge Assessment Last Done: 02/06/25 01:56 Discharge Problem: Fever Qualifiers: Fever type: unspecified Qualified Code(s): R50.9 - Fever, unspecified
[2025-02-05 19:16] LABS: Adenovirus PCR Not Detected (NotDetected); Bordetella parapertussis PCR Not Detected (NotDetected); Bordetella pertussis PCR Not Detected (NotDetected); Chlamydia pneumoniae PCR Not Detected (NotDetected); Coronavirus 229E PCR Not Detected (NotDetected); Coronavirus CoV-2 (COVID19)PCR Not Detected (NotDetected); Coronavirus HKU1 PCR Not Detected (NotDetected); Coronavirus NL63 PCR Not Detected (NotDetected); Coronavirus OC43PCR Not Detected (NotDetected); Human Metapneumovirus PCR Not Detected (NotDetected); Influenza A PCR Not Detected (NotDetected); Influenza B PCR Not Detected (NotDetected); Mycoplasma pneumoniae PCR Not Detected (NotDetected); Parainfluenza Virus 1 PCR Not Detected (NotDetected); Parainfluenza Virus 2 PCR Not Detected (NotDetected); Parainfluenza Virus 3 PCR Not Detected (NotDetected); Parainfluenza Virus 4 PCR Not Detected (NotDetected); Respiratory Syncytial VirusPCR Not Detected (NotDetected); Rhinovirus/Enterovirus PCR Not Detected (NotDetected)
--- NOTE | 2025-02-05 19:19 | XRay Report ---
EXAM: XR chest 1V portable CLINICAL HISTORY: Sepsis TECHNIQUE: An X-ray image of the chest is obtained in AP projection. COMPARISON: CT 01/02/2025 - CR 08/28/2019 FINDINGS: Pulmonary Parenchyma: Prominent bilateral bronchovascular markings. No evidence of consolidation, collapse, or focal opacities. No pulmonary nodules are identified. No evidence of pleural effusion or pleural thickening. Heart and Mediastinum: Despite portable projection, there is a normal configuration of the mediastinum and the cardiac size is normal. Bony Thorax: Bony thorax appears intact without fractures or deformities. Soft Tissues: Soft tissues overlying the chest wall are unremarkable. Cardiac monitoring electrodes. IMPRESSION: 1. Prominent bilateral bronchovascular markings. This is a new finding. 2. These could probably represent early/mild inflammatory/infectious etiology. 3. Correlate clinically. Electronically signed by Balaji Cano 02-05-2025 7:18 PM
--- NOTE | 2025-02-05 20:26 | History & Physical Report ---
Date of Service February 05, 2025 Assessment & Plan (1) Fever: (2) Rigors: (3) Immunocompromised state: (4) Alcohol use disorder: Plan Patient is a 69-year-old male with past medical history of thrombocytosis treated with hydroxyurea x 1 month, hypertension, prediabetes, and chronic al cohol use. He stated he has felt feverish and "off "since Wednesday however developed severe rigors and chills 02/05 afternoon. He called into the CCP who recommended he come to the ED. Workup in the ED was essentially negative other than CXR showing bilateral bronchovascular markings concerning for infectious origin and a fever of 38.6C. Patient noted he also drinks 2 shots per day times several years and his last drink was Friday 02/02, alcohol withdrawal remains within differential. Patient is being [facility] in a.m. and to have floor runner consult for potential hydroxyurea side effects. #Fever with rigors immunocompromised on hydroxyurea for thrombocytosis differential includes but not limited to hydroxyurea side effect, alcohol withdrawal, pneumonia no clinical indication of infection despite chest x-ray showing bilateral bronchovascular markings concerning for infection - Patient has no respiratory symptoms and CXR similar to previous - Given to 2G IV cefepime in ED, will defer further antibiotic use at this time - blood and sputum cultures taken in ED; continue to follow - no leukocytosis, VSS stable other than fever, nonhypoxic, Pro-José Miguel 0.21, lactate 1.2 - biofire negative, UA negative for acute infection platelet count improved to 409 (previously in 600s) Tylenol as needed holding hydroxyurea Consult floor runner - Dr. Flores will follow labs in a.m. to monitor for leukocytosis or developing signs of pneumonia #alcohol use disorder Typically drinks 2 liquor shots daily x several years; last drink 02/02 evening LFTS WNL; [facility] AWSS protocol Thiamine IV 100mg and folic acid 1mg IV on admission and QAM at risk protocol with Ativan IV prn folate, B12, B1 levels ordered Chronic stable diagnoses: HTN - continue lisinopril VTE ppx: SCDs, low risk and obs status, for long-term stay continue chemical VT E PPx Diet: regular Dispo: MedSurg Admission and Anticipated Discharge Date Admission Date: 02/05/25 History of Present Illness Chief Complaint: illness Primary Care Provider: Cortney Ward MD Patient is a 69-year-old male with past medical history of thrombocytosis treated with hydroxyurea x 1 month, hypertension, prediabetes, and chronic alcohol use. He stated he has felt feverish and "off "since Wednesday however developed severe rigors and chills 02/05 afternoon. He called into the CCP who recommended he come to the ED. Workup in the ED was essentially negative other than CXR showing bilateral bronchovascular markings concerning for infectious origin and a fever of 38.6C. patient is being admitted with IV antibiotics for pneumonia coverage and hematology consult as fever and rigors may be due to hydroxyurea side effect. Patient noted he also drinks 2 shots per day times several years and his last drink was Friday 02/02, alcohol withdrawal remains within differential. Patient seen at bedside with his present. He endorses the above. Today when he was out running errands he developed severe rigors and chills. He was supposed to go to [place] tomorrow to visit his daughter and canceled his trip. He stated when he got home from running errands he took an Advil and got under a heating pad and felt somewhat better however the CCP told him to come into the ED. He denies any other infectious like symptoms. Patient denies dizziness, lightheadedness, rhinorrhea, sore throat, cough, sputum production, dyspnea, dyspnea on exertion, chest pain, abdominal pain, nausea, vomiting, diarrhea. Patient stated he may have taken a double dose of hydroxyurea 02/03 however does not remember, he did not take any of his home medications yesterday 02/04, he did take all of his regular home medications today 02/05. Patient stated he does drink approximately 2 [place]'s a day for the past few years and his last drink was on Wednesday. He thought his symptoms may have been due from alcohol withdrawal. he had a colonoscopy last Wednesday and quit drinking for several days prior without symptoms. He does note a history of prediabetes however diet controlled at this time. He wishes to be full code. Spoke [facility] Dr. Cheek who believes this may be a hydroxyurea side effect as patient recently started 1 month ago and fever and rigors can develop in approximately 3% of patients. Will hold hydroxyurea at this time and consult hematology to further evaluate in a.m. Allergies Allergy/AdvReac Type Severity Reaction Status Date / Time bee venom protein (honey bee) Allergy Intermediate local Verified 02/05/25 18:19 swelling Home Medications Medication Instructions Recorded Confirmed Type amoxicillin 500 mg tablet 2,000 mg (4 x 500 mg) PO ONCE PRN 01/09/20 02/05/25 Rx prophylaxis #4 tabs sildenafil 100 mg tablet (Viagra) 50 - 100 mg (0.5 - 1 x 100 mg) PO 06/25/23 02/05/25 Rx DAILY PRN Erectile Dysfunction #20 tabs glucosamine-chondroitin 500 mg-400 1 cap PO DAILY 08/07/24 02/05/25 History mg capsule omega 7-qfz-dca-fish oil 1,000 mg 1 cap PO DAILY 10/13/24 02/05/25 History (120 mg-180 mg) capsule (Fish Oil) lisinopril 10 mg tablet 10 mg PO QAM #90 tabs 11/08/24 02/05/25 Rx hydroxyurea 500 mg capsule 500 mg PO QAM 01/24/25 02/05/25 History acetaminophen 500 mg tablet 500 - 1,000 mg PO Q6H PRN Pain 02/05/25 02/05/25 History (Tylenol Extra Strength) ibuprofen 200 mg tablet (Advil) 200 - 600 mg PO Q6H PRN Pain 02/05/25 02/05/25 History Past Med/Surg History Problem List (Updated 02/05/25 @ 22:55 by Kelly Self PA-C) Alcohol use disorder Rigors Immunocompromised state (Acute) Fever (Acute) Encounter for pre-operative examination Pre-diabetes Raynaud disease History of joint replacement Ulcerative proctitis Hypertension Medical History Essential thrombocytosis and CALR+ - following with [facility]. managing with Hydroxyurea daily Spontaneous pneumothorax hx - 12/2013. no problems since. Hypertension Ulcerative proctitis hx. Raynaud disease Pre-diabetes monitoring, life style change Hx of diverticulitis of colon Hx of skin cancer, basal cell Obesity Osteoarthritis Surgical History H/O left inguinal hernia repair History of right hip replacement 09/2019 History of colonoscopy with polypectomy History of arthroscopy Left Knee Hx of vasectomy History of colostomy reversal reversed 2013 History of bowel resection r/t diverticulitis History of tooth extraction Family History Mother No problems noted. Father Bladder cancer Kidney disease Brother Cancer testicular Sister Hypothyroidism Other No family history of adverse response to anesthesia Denies family history of Ovarian cancer Prostate cancer Myocardial infarction Breast cancer Colorectal cancer Social History Smoking Status: Never smoker Second Hand Exposure: No (mom smoked); Do You Dip or Chew Tobacco: No; Hx Alcohol Use: Yes Alcohol type: beer, wine and hard liquor Alcohol Intake Frequency: 4 or More x per/Week Hx Substance Use: No Preferred Language: Maori Communication Ability: Effective Visual Impairment: Partially Limited Hearing Ability: Normal Fire Information Officer Required: No Beliefs That Will Affect Care: None marital status: Current Living Situation: Spouse current occupational status: retired How many Children do You have: 4 Feels Safe at Home: Yes Childhood Exposure to Second-Hand Smoke: Yes Diet: regular caffeine: Yes during the past year weight has: remained stable Dental Care, Regularly: Yes Physical Activity Frequency: 1-2 Times per Week Seatbelt Use: always Sunscreen Use: Yes Assistive Devices: None Review of Systems Review of Systems: see HPI Physical Exam Physical Exam: The patient is awake, alert and oriented 3, well developed and well nourished, normocephalic and atraumatic, in no acute distress. Non-toxic appearing. HEENT- EOMI, mucous membranes moist. Hearing grossly intact. Heart-normal S1 and S2. No murmurs, rubs or gallops. Lungs-clear bilaterally, no respiratory distress, no accessory muscle use. Abdomen-normal bowel sounds and soft. No ascites noted. Non-tender. Extremities- no clubbing, cyanosis, or edema. Rheumatologic-normal range of motion. Psychiatric-normal affect. Results & Data Results & Data Vital Signs (Past 12 Hours) Vital Signs Temp Pulse Pulse Resp BP BP Pulse Ox 02/05/25 20:15 79 16 124/81 95 02/05/25 20:00 79 16 124/81 94 02/05/25 19:00 82 21 02/05/25 18:54 82 19 02/05/25 18:33 85 27 H 94 02/05/25 18:21 86 22 94 02/05/25 18:03 88 24 02/05/25 17:48 93 H 25 H 94 02/05/25 17:45 96 H 16 157/90 H 92 02/05/25 17:30 92 H 16 157/90 H 91 02/05/25 17:19 94 H 02/05/25 17:15 94 H 18 02/05/25 17:15 94 H 16 157/90 H 92 02/05/25 17:12 101 H 23 93 02/05/25 17:02 93 02/05/25 17:01 157/90 H 02/05/25 17:01 157/90 H 02/05/25 17:01 157/90 H 02/05/25 17:01 157/90 H 02/05/25 17:01 157/90 H 02/05/25 17:01 157/90 H 02/05/25 17:01 157/90 H 02/05/25 17:01 157/90 H 02/05/25 17:01 157/90 H 02/05/25 17:01 157/90 H 02/05/25 17:01 157/90 H 02/05/25 17:01 157/90 H 02/05/25 17:01 157/90 H 02/05/25 17:01 157/90 H 02/05/25 17:01 157/90 H 02/05/25 17:01 157/90 H 02/05/25 17:01 114 H 18 157/90 H 92 02/05/25 16:42 38.6 C H 107 H 18 156/77 H 93 O2 Del Method 02/05/25 20:15 Room Air 02/05/25 20:00 Room Air 02/05/25 19:00 02/05/25 18:54 02/05/25 18:33 02/05/25 18:21 02/05/25 18:03 02/05/25 17:48 02/05/25 17:45 Room Air 02/05/25 17:30 Room Air 02/05/25 17:19 02/05/25 17:15 02/05/25 17:15 Room Air 02/05/25 17:12 02/05/25 17:02 Room Air 02/05/25 17:01 02/05/25 17:01 02/05/25 17:01 02/05/25 17:01 02/05/25 17:01 02/05/25 17:01 02/05/25 17:01 02/05/25 17:01 02/05/25 17:01 02/05/25 17:01 02/05/25 17:01 02/05/25 17:01 02/05/25 17:01 02/05/25 17:01 02/05/25 17:01 02/05/25 17:01 02/05/25 17:01 Room Air 02/05/25 16:42 Room Air Laboratory Results reviewed CBC, CMP, PT/INR, magnesium, lactate, troponin, UA, BioFire Diagnostic Findings reviewed CXR Medications Administered EDcefepime 2G IV, Tylenol 1G IV, NSS 2.5 mL bolus ECG Additional Comments: NSR, rate 96 QTc 406 Code Status & VTE Plan Code Status full code VTE Prophylaxis Plan VTE Prophylaxis will be ordered: Yes PG Care Time/CCT Total # of Minutes Spent Total Time Spent with Patient: Total time spent is greater than 50% in coordination of care (as documented) at patient's floor/unit and/or counseling patient: Coding Level of Care Code 73775 INT INP/OBS CARE 3/75MIN Diagnoses Fever R50.9 Rigors R68.89 Immunocompromised state D84.9 Alcohol use disorder F10.90
[2025-02-05 21:44] LABS: Folate (Folic Acid),Ser orPlas 18.94 ng/ml (>5.38)
[2025-02-05] MEDS: THIAMINE HCL 100 MG in SYRINGE 9 ML IV STA (21:56)
[2025-02-05] MEDS: FOLIC ACID 1 MG in SYRINGE 9.8 ML IV STA (21:56)
[2025-02-06] MEDS ORDERED: LORazepam 2 MG/1 ML VIAL IV PRN (00:55)
[2025-02-06] MEDS ORDERED: ONDANSETRON INJ 2 MG/ML 2 ML VIAL IV PRN (00:55)
[2025-02-06] MEDS: ACETAMINOPHEN 325 MG TAB PO PRN (01:07)
[2025-02-06 06:15] LABS: Basophils # (auto) 0.03 K/uL (0.00-0.20); Basophils % (auto) 0.4 %; Eosinophils # (auto) 0.01 K/uL (0.00-0.50); Eosinophils % (auto) 0.1 %; Hematocrit (blood only) 38.4 % (42.0-52.0); Hemoglobin 12.6 g/dl (14.0-18.0); Immature Granulocytes % (auto) 1.5 %; Lymphocytes % (auto) 7.4 %; Mean Corpuscular Hgb Conc 32.8 g/dL (32.0-36.0); Mean Corpuscular Volume 94.3 fL (80.0-100.0); Mean Platelet Volume 10.1 fL (9.4-12.4); Monocytes # (auto) 0.39 K/uL (0.11-0.59); Monocytes % (auto) 5.7 %; Neutrophils # (auto) 5.76 K/uL (1.40-6.50); Neutrophils % (auto) 84.9 %; Platelet Count 352 K/uL (130-400); RDW Standard Deviation 55.1 fL (36.4-46.3); Red Blood Count 4.07 M/uL (4.70-6.10); White Blood Count 6.79 K/ul (4.8-10.8)
[2025-02-06 06:29] LABS: Albumin Globulin Ratio 1.3 (0.9-2); Albumin Level 3.8 gm/dl (3.4-5.0); BUN Creatinine Ratio 17.2 (10-20); Bilirubin,Total 0.7 mg/dl (0.2-1.0); Calcium 8.6 mg/dl (8.6-10.3); Creatinine Clr Calc Pharmacy 87.7 ml/min; Globulin 2.9 gm/dl (2.5-4.0); Magnesium 1.7 mg/dl (1.7-2.4); Potassium 3.8 mmol/L (3.5-5.1); Total Protein 6.7 gm/dl (6.0-8.3)
[2025-02-06] MEDS: FOLIC ACID 1 MG in SYRINGE 9.8 ML IV SCH (07:45)
[2025-02-06] MEDS: THIAMINE HCL 100 MG in SYRINGE 9 ML IV SCH (07:46)
[2025-02-06] MEDS: lisinopril 10 MG TAB PO SCH (08:18)
--- NOTE | 2025-02-06 09:46 | Hospitalist Progress Note ---
Date of Service February 06, 2025 Assessment & Plan (1) Fever: (2) Rigors: (3) Immunocompromised state: Plan Patient is a 69-year-old male with past medical history of thrombocytosis treated with hydroxyurea x 1 month, hypertension, prediabetes, chronic alcohol use, hx of sigmoid colon resection, chronic proctitis. He stated he has felt feverish and "off "since Wednesday however developed severe rigors and chills 02/05 afternoon. He called into the [facility] who recommended he come to the ED. Workup in the ED was essentially negative other than CXR showing bilateral bronchovascular markings concerning for infectious origin and a fever of 38.6C. Fever with rigors - Fevers started on Wednesday, [facility] and had labs completed, fever and rigors worsened Wednesday - CXR showed increased BL bronchovascular markings, pt with chest tightness and mild intermittent cough - 1 dose 2g IV cefepime given in ED; Blood and sputum Cx pending - Likely viral vs atypical pneumonia; Started Azithromycin PO daily - biofire negative, UA negative for acute infection - platelets 352 (previously in 600s) - Continue Tylenol as needed; Follow blood cx x2 and sputum cx - Hold Hydroxyurea, pt with hematology f/u in few days post d/c to discuss resuming this medication started taking 01/10 - Hematology consulted; appreciate recs - CBC, BMP QAM Alcohol use disorder - Typically drinks 2 liquor shots daily x several years; last drink 4/4 evening - Thiamine IV 100mg and folic acid 1mg IV on admission - folate, B12, B1 levels ordered - Continue to monitor, but no signs of withdrawal at this time Chronic stable diagnoses: HTN - continue lisinopril VTE ppx: SCDs, low risk and obs status, for long-term stay continue chemical VTE PPx Diet: regular Dispo: MedSurg Admission and Anticipated Discharge Date Admission Date: February 05, 2025 Supervising Physician Co-Signing Physician Notes I personally examined the patient and verified all [place] points of history and exam, discussed case, and agree with decision making with Dr Mak fevers, rigors. mild chest symptoms. brother in law retired distributor sales consultant thinking viral pneumonia. vitals noted nad heent nc at mmm skin sl diaphoretic lungs faint scattered rales no rhonchi no wheeze CXR reviewed labs noted fever/rigors - most likely viral vs atypical pneumonia - and given duration - will cover w atypical coverage (azithromycin). follow clinically - if anything develops obviously then change course; follow cultures. ddx - while viral vs atypical pneumonia highest, ddx remains broad until situation "declares itself or resolves" - tick borne (but no transaminitis making anaplasma/babesia less likely), more typical pathogens, bacteremia all on ddx and >> hydroxyurea ADR although that is also still possible no s/s EtOH withdrawal, on thiamine/folate, folate level sent low B12 - replace PO, f/u labs in ~3 months thrombocytosis - appears to have responded to hydroxyurea well updated brother in law over the phone Subjective Alban Payne was seen resting comfortably this morning. Patient endorses that he still feels hot, and does have a fever. Otherwise patient is largely asymptomatic, he denies chest pain, palpitations, SOB, wheeze, abdominal pain, nausea, and vomiting. Patient does endorse an intermittent cough and mild chest tightness. Patient remains hemodynamically stable. Physical Exam Physical Exam: General: patient resting comfortably, NAD, non-toxic in appearance, answers questions appropriately. Skin: warm, dry, intact HEENT: NC/AT, anicteric sclera, conjunctiva without injection, moist mucus membranes. Heart: +S1/S2, regular, no m/r/g Lungs: equal air entry bilaterally, no rales/rhonchi/wheezes Abd: +BS, soft, NT/ND Ext: warm, no clubbing/cyanosis or edema Neuro: nonfocal, speech intact, no facial droop, moving all extremities. Results & Data Results & Data Vital Signs (Past 12 Hours) Vital Signs Temp Pulse Pulse Pulse Resp BP BP 02/06/25 07:28 38.9 C H 90 19 162/83 H 02/06/25 02:33 37.7 C H 84 18 153/70 H 02/06/25 01:46 90 20 155/90 H 02/06/25 01:00 86 24 164/88 H 02/06/25 00:00 93 H 20 148/69 H 02/05/25 23:00 93 H 16 155/86 H 02/05/25 22:48 94 H 16 155/86 H 02/05/25 22:00 96 H 16 155/86 H 02/05/25 21:57 99 H 16 149/87 H Pulse Ox O2 Del Method 02/06/25 07:28 94 Room Air 02/06/25 02:33 95 Room Air 02/06/25 01:46 95 Room Air 02/06/25 01:00 94 02/06/25 00:00 92 02/05/25 23:00 93 Room Air 02/05/25 22:48 93 Room Air 02/05/25 22:00 96 02/05/25 21:57 96 Room Air Resident Activity Tracking Resident Involvement: Resident Care Provided Care Provided: Adult Hospital Medicine
[2025-02-06 15:09] VITALS: O2SAT 95
[2025-02-06] MEDS: AZITHROMYCIN 250 MG TAB PO ONE (16:41)
--- NOTE | 2025-02-06 17:02 | Billing Data ---
Date of Service February 06, 2025 Coding Level of Care Code 74903 SUB INP/OBS CARE
--- NOTE | 2025-02-06 17:51 | Oncology Consultation ---
Date of Consultation February 06, 2025 History of Present Illness Attending Physician: Toy Pickens DO Allergies Allergy/AdvReac Type Severity Reaction Status Date / Time bee venom protein (honey bee) Allergy Intermediate local Verified 02/05/25 18:19 swelling Home Medications Medication Instructions Recorded Confirmed Type amoxicillin 500 mg tablet 2,000 mg (4 x 500 mg) PO ONCE PRN 01/09/20 02/05/25 Rx prophylaxis #4 tabs sildenafil 100 mg tablet (Viagra) 50 - 100 mg (0.5 - 1 x 100 mg) PO 06/25/23 02/05/25 Rx DAILY PRN Erectile Dysfunction #20 tabs glucosamine-chondroitin 500 mg-400 1 cap PO DAILY 08/07/24 02/05/25 History mg capsule omega 2-lpv-cxl-fish oil 1,000 mg 1 cap PO DAILY 10/13/24 02/05/25 History (120 mg-180 mg) capsule (Fish Oil) lisinopril 10 mg tablet 10 mg PO QAM #90 tabs 11/08/24 02/05/25 Rx hydroxyurea 500 mg capsule 500 mg PO QAM 01/24/25 02/05/25 History acetaminophen 500 mg tablet 500 - 1,000 mg PO Q6H PRN Pain 02/05/25 02/05/25 History (Tylenol Extra Strength) ibuprofen 200 mg tablet (Advil) 200 - 600 mg PO Q6H PRN Pain 02/05/25 02/05/25 History cyanocobalamin (vitamin B-12) 1,000 mcg PO DAILY #30 tabs 02/06/25 Rx 1,000 mcg tablet Patient History Medical History Essential thrombocytosis and CALR+ - following with [facility]. managing with Hydroxyurea daily Spontaneous pneumothorax hx - 12/2013. no problems since. Hypertension Ulcerative proctitis hx. Raynaud disease Pre-diabetes monitoring, life style change Hx of diverticulitis of colon Hx of skin cancer, basal cell Obesity Osteoarthritis Surgical History H/O left inguinal hernia repair History of right hip replacement 09/2019 History of colonoscopy with polypectomy History of arthroscopy Left Knee Hx of vasectomy History of colostomy reversal reversed 2013 History of bowel resection r/t diverticulitis History of tooth extraction Family History Mother No problems noted. Father Bladder cancer Kidney disease Brother Cancer testicular Sister Hypothyroidism Other No family history of adverse response to anesthesia Denies family history of Ovarian cancer Prostate cancer Myocardial infarction Breast cancer Colorectal cancer Social History Smoking Status: Never smoker Second Hand Exposure: No; Do You Dip or Chew Tobacco: No; Tobacco Cessation Education Requested by Patient: No Hx Alcohol Use: Yes Alcohol type: hard liquor Alcohol Intake Frequency: 4 or More x per/Week Hx Substance Use: No Preferred Language: French Communication Ability: Effective Visual Impairment: Partially Limited Hearing Ability: Normal Title I Assistant Required: No Beliefs That Will Affect Care: None marital status: Current Living Situation: Spouse current occupational status: retired How many Children do You have: 4 Other Information That Helps Us Care for You: No Feels Safe at Home: Yes Safety Concerns: Feels Safe At This Time Childhood Exposure to Second-Hand Smoke: Yes Diet: regular caffeine: Yes during the past year weight has: remained stable Dental Care, Regularly: Yes Physical Activity Frequency: 1-2 Times per Week Seatbelt Use: always Sunscreen Use: Yes Assistive Devices: None Results & Data Vital Signs (Past 12 Hours) Vital Signs Temp Pulse Resp BP Pulse Ox O2 Del Method 02/06/25 15:05 38.1 C H 81 16 146/75 H 95 Room Air 02/06/25 07:28 38.9 C H 90 19 162/83 H 94 Room Air
[2025-02-06 19:02] VITALS: RESP 18
[2025-02-06] MEDS: MELATONIN 3 MG TAB PO PRN (22:02)
--- NOTE | 2025-02-07 05:24 | Electrocardiogram Report ---
Test Reason : Blood Pressure : */* mmHG Vent. Rate : 96 BPM Atrial Rate : 96 BPM P-R Int : 140 ms QRS Dur : 70 ms QT Int : 322 ms P-R-T Axes : 61 43 54 degrees QTcB Int : 406 ms Normal sinus rhythm Normal ECG When compared with ECG of 28-Aug-2019 11:52, No significant change Confirmed by Keyshawn Ramos ([id number]) on 02/07/2025 5:24:13 AM Referred By: REFERRED SELF Confirmed By: Keyshawn Ramos
[2025-02-07 07:53] VITALS: BP 142/83; TEMP 98.4
[2025-02-07] MEDS: CYANOCOBALAMIN (B-12) 500 MCG TABLET PO SCH (08:10)
[2025-02-07] MEDS: AZITHROMYCIN 250 MG TAB PO SCH (08:10)
[2025-02-07 09:53] LABS: Basophils # (auto) 0.03 K/uL (0.00-0.20); Basophils % (auto) 0.3 %; Eosinophils # (auto) 0.04 K/uL (0.00-0.50); Eosinophils % (auto) 0.5 %; Hematocrit (blood only) 36.4 % (42.0-52.0); Immature Granulocytes # (auto) 0.08 K/uL (0.01-0.20); Immature Granulocytes % (auto) 0.9 %; Lymphocytes # (auto) 0.87 K/uL (1.20-3.40); Lymphocytes % (auto) 9.9 %; Mean Corpuscular Volume 94.1 fL (80.0-100.0); Mean Platelet Volume 10.1 fL (9.4-12.4); Monocytes # (auto) 1.18 K/uL (0.11-0.59); Monocytes % (auto) 13.4 %; Neutrophils # (auto) 6.62 K/uL (1.40-6.50); Platelet Count 352 K/uL (130-400); RDW Standard Deviation 54.7 fL (36.4-46.3); Red Blood Count 3.87 M/uL (4.70-6.10); White Blood Count 8.82 K/ul (4.8-10.8)
--- NOTE | 2025-02-07 10:02 | Hospitalist Progress Note ---
Date of Service February 07, 2025 Assessment & Plan (1) Fever: (2) Rigors: (3) Immunocompromised state: Plan Patient is a 69-year-old male with past medical history of thrombocytosis treated with hydroxyurea x 1 month, hypertension, prediabetes, chronic alcohol use, hx of sigmoid colon resection, chronic proctitis. He stated he has felt feverish and "off "since Wednesday however developed severe rigors and chills 02/05 afternoon. He called into the [facility] who recommended he come to the ED. Workup in the ED was essentially negative other than CXR showing bilateral bronchovascular markings concerning for infectious origin and a fever of 38.6C. Fever with rigors - Fevers started on Wednesday, pt. called [facility] and had labs completed, fever and rigors worsened Wednesday - CXR showed increased BL bronchovascular markings, pt with chest tightness and mild intermittent cough - 1 dose 2g IV cefepime given in ED; Blood and sputum Cx pending - Likely viral vs atypical pneumonia; Started Azithromycin PO daily - biofire negative, UA negative for acute infection - platelets 352 (previously in 600s) - Continue Tylenol as needed; Follow blood cx x2 and sputum cx - Hold Hydroxyurea, pt with hematology f/u in few days post d/c to discuss resuming this medication started taking 01/10 - Hematology consulted; appreciate recs - CBC, BMP QAM Alcohol use disorder - Typically drinks 2 liquor shots daily x several years; last drink 4/4 evening - Thiamine IV 100mg and folic acid 1mg IV on admission - folate, B12, B1 levels ordered - Continue to monitor, but no signs of withdrawal at this time Chronic stable diagnoses: HTN - continue lisinopril VTE ppx: SCDs, low risk and obs status, for long-term stay continue chemical VTE PPx Diet: regular Dispo: MedSurg Admission and Anticipated Discharge Date Admission Date: February 05, 2025 Jeanie Payne was seen resting comfortably this morning. Patient endorses that he still feels hot, and does have a fever. Otherwise patient is largely asymptomatic, he denies chest pain, palpitations, SOB, wheeze, abdominal pain, nausea, and vomiting. Patient does endorse an intermittent cough and mild chest tightness. Patient remains hemodynamically stable. Physical Exam Physical Exam: General: patient resting comfortably, NAD, non-toxic in appearance, answers questions appropriately. Skin: warm, dry, intact HEENT: NC/AT, anicteric sclera, conjunctiva without injection, moist mucus membranes. Heart: +S1/S2, regular, no m/r/g Lungs: equal air entry bilaterally, no rales/rhonchi/wheezes Abd: +BS, soft, NT/ND Ext: warm, no clubbing/cyanosis or edema Neuro: nonfocal, speech intact, no facial droop, moving all extremities. Results & Data Results & Data Vital Signs (Past 12 Hours) Vital Signs Temp Pulse Resp BP Pulse Ox O2 Del Method 02/07/25 07:53 36.9 C 66 18 142/83 H 95 Room Air (1) Fever Fever type: unspecified Qualified Code(s): R50.9 - Fever, unspecified
[2025-02-07 10:05] LABS: BUN Creatinine Ratio 16.1 (10-20); Creatinine Clr Calc Pharmacy 93.8 ml/min; Potassium 3.8 mmol/L (3.5-5.1)
--- NOTE | 2025-02-07 12:32 | Discharge Summary ---
Date of Service February 07, 2025 Admission HPI Per Admitting Provider Patient is a 69-year-old male with past medical history of thrombocytosis treated with hydroxyurea x 1 month, hypertension, prediabetes, and chronic alcohol use. He stated he has felt feverish and "off "since Wednesday however developed severe rigors and chills 02/05 afternoon. He called into the CCP who recommended he come to the ED. Workup in the ED was essentially negative other than CXR showing bilateral bronchovascular markings concerning for infectious origin and a fever of 38.6C. patient is being admitted with IV antibiotics for pneumonia coverage and hematology consult as fever and rigors may be due to hy droxyurea side effect. Patient noted he also drinks 2 shots per day times several years and his last drink was Friday 02/02, alcohol withdrawal remains within differential. Patient seen at bedside with his present. He endorses the above. Today when he was out running errands he developed severe rigors and chills. He was supposed to go to [place] tomorrow to visit his daughter and canceled his trip. He stated when he got home from running errands he took an Advil and got under a heating pad and felt somewhat better however the CCP told him to come into the ED. He denies any other infectious like symptoms. Patient denies dizziness, lightheadedness, rhinorrhea, sore throat, cough, sputum production, dyspnea, dyspnea on exertion, chest pain, abdominal pain, nausea, vomiting, diarrhea. Patient stated he may have taken a double dose of hydroxyurea 02/03 however does not remember, he did not take any of his home medications yesterday 02/04, he did take all of his regular home medications today 02/05. Patient stated he does drink approximately 2 [place]'s a day for the past few years and his last drink was on Wednesday. He thought his symptoms may have been due from alcohol withdrawal. he had a colonoscopy last Wednesday and quit drinking for several days prior without symptoms. He does note a history of prediabetes however diet controlled at this time. He wishes to be full code. Spoke with [facility] Dr. Cheek who believes this may be a hydroxyurea side effect as patient recently started 1 month ago and fever and rigors can develop in approximately 3% of patients. Will hold hydroxyurea at this time and consult hematology to further evaluate in a.m. Admission Exam Per Admitting Provider The patient is awake, alert and oriented 3, well developed and well nourished, normocephalic and atraumatic, in no acute distress. Non-toxic appearing. HEENT- EOMI, mucous membranes moist. Hearing grossly intact. Heart-normal S1 and S2. No murmurs, rubs or gallops. Lungs-clear bilaterally, no respiratory distress, no accessory muscle use. Abdomen-normal bowel sounds and soft. No ascites noted. Non-tender. Extremities- no clubbing, cyanosis, or edema. Rheumatologic-normal range of motion. Psychiatric-normal affect. Principal Diagnosis Fevers, Rigors 2/2 URI Discharge Exam General: patient resting comfortably, NAD, non-toxic in appearance, answers questions appropriately. Skin: warm, dry, intact HEENT: NC/AT, anicteric sclera, conjunctiva without injection, moist mucus membranes. Heart: +S1/S2, regular, no m/r/g Lungs: equal air entry bilaterally, no rales/rhonchi/wheezes Abd: +BS, soft, NT/ND Ext: warm, no clubbing/cyanosis or edema Neuro: nonfocal, speech intact, no facial droop, moving all extremities. Discharge Data Allergies Allergy/AdvReac Type Severity Reaction Status Date / Time bee venom protein (honey bee) Allergy Intermediate local Verified 02/05/25 18:19 swelling Consultations 02/05/25 19:55 ED Decision to Admit Stat 02/06/25 00:55 Consult Hematology Routine Hospital Course (1) Fever: (2) Rigors: (3) Immunocompromised state: Plan Patient is a 69-year-old male with past medical history of thrombocytosis treated with hydroxyurea x 1 month, hypertension, prediabetes, chronic alcohol use, hx of sigmoid colon resection, chronic proctitis. He stated he has felt feverish and "off "since Wednesday however developed severe rigors and chills 02/05 afternoon. He called into the [facility] who recommended he come to the ED. Workup in the ED was essentially negative other than CXR showing bilateral bronchovascular markings concerning for infectious origin and a fever of 38.6C. Fever with rigors - Fevers started on Wednesday, pt[facility] and had labs completed, fever and rigors worsened Wednesday - CXR showed increased BL bronchovascular markings, pt with chest tightness and mild intermittent cough - 1 dose 2g IV cefepime given in ED; Blood and sputum Cx pending - Likely viral vs atypical pneumonia; Started Azithromycin PO daily - biofire negative, UA negative for acute infection - platelets 352 (previously in 600s) - Continue Tylenol as needed; Follow blood cx x2 and sputum cx - Hold Hydroxyurea, pt with hematology f/u in few days post d/c to discuss resuming this medication started taking 01/10 - Hematology consulted; appreciate recs - CBC, BMP QAM Alcohol use disorder - Typically drinks 2 liquor shots daily x several years; last drink / evening - Thiamine IV 100mg and folic acid 1mg IV on admission - folate, B12, B1 levels ordered - Continue to monitor, but no signs of withdrawal at this time Total Time Total Time Spent Total Time Spent (In Minutes): See attending attestation Discharge Plan Discharge Items Patient Disposition: Home - Self-Care Reason For Visit: FEVER WITH RIGORS, IMMUNOCOMPROMISED Discharge Diagnosis: Fevers w/ rigors Condition on Discharge: Good Activity: Per Instructions section Non-emergency contact: Primary Care Provider Call non-emergency contact if: your symptoms worsen and your pain is unusual for you Follow-up/Referrals: Cortney Ward MD [Primary Care Provider] - 02/14/25 11:00 am Diet: Regular Addtl Attending Provider Instructions: You were admitted to the hospital for fevers and rigors. You were initially thought to be having a very rare reaction to a new medication you started called hydroxyurea, as a source of your infection was not apparent. Your labs and imaging was largely normal, but your chest x-ray did show some evidence of increased consolidation in the R. lower lung and your intermittent cough, congestion, and chest tightness on deep inspiration fit with the picture of a viral or atypical pneumonia. It seems more likely that rather than a reaction to your hydroxyurea medication, you happened to be on a immunosuppressive medication when you co-incidentally got a respiratory infection. Hydroxyurea typically does not cause a severe level of immunosuppression that is seen with some other types of medications and chemotherapy. While in the hospital your rigors resolved very quickly, although you still had persistent fevers. After one day admitted your fevers also resolved with regular Tylenol use, and the major symptom you had that was ongoing today was some increased chest tightness/sharp discomfort on deep inspiration, but without shortness of breath, fevers, rigors, and chills. This is likely due to resolving respiratory infection, and the mucous, pus, and inflammation resolving as it comes out of your lungs. In general you did endorse that you feel better today, and were walking around your room this morning without issue which was very different and improved from the day before. You have been placed on a medication called Azithromycin as atypical bacterial pneumonia's can often appear the same as viral pneumonia. This medication should be continued once daily for the next 3 days, and if this pneumonia is viral in nature, I expect it to improve with rest and hydration over the next week or so. Please continue to follow-up with your rolling down machine operator, you should have an appointment in the next week or so to discuss the hydroxyurea medication and whether or not it should be maintained at the same dose, as your platelets have been well controlled. A discharge summary will be sent to your primary care physician to ensure continuity of care. Please bring this discharge summary with you to your next office appointment so that your provider can review it at that time. Follow-up appointments: Make a follow-up appointment with your PCP within the next week. It is very important that you follow up with them shortly after discharge from the hospital. Please follow-up with your rolling down machine operator. The previous note from this department stated that they would follow-up for an appointment in a month to discuss your new hydroxyurea medication, and this appointment should be coming up in the next week or so. Medications: Your medication list has been reviewed and reconciled upon discharge to ensure accuracy and continuity of care. An updated list of all your medications is included with your hospital discharge paperwork. Please review this list closely, and make note of any changes. We sent a new medication called Azithromycin to your pharmacy. Take Azithromycin 250mg one tablet daily for 3 days. This medication can sometimes cause stomach upset, please take with food to avoid these symptoms. Take your medications as instructed; do not skip a dose of your medicines. Make sure all of your doctors know every medicine you are taking (including gijr-[id number] medicines, vitamins, and supplements). Call your primary care provider before taking any new medicines (including xlmc-zla-[id number] medicines, vitamins, and supplements), because some of these may interact with your current medications, or may make your symptoms worse. Tell your primary care provider if you cannot afford your medications. CONTACT YOUR PRIMARY CARE PROVIDER if you experience any of the following: Difficulty following your treatment plan, or difficulty taking medications CALL 911 OR GO TO THE EMERGENCY DEPARTMENT if you experience any of the following: Sudden, severe abdominal pain or nausea/vomiting Severe chest pain, or chest pain that radiates (moves) to your jaw or arm Sudden, severe shortness of breath or difficulty breathing Thank you for allowing us to participate in your care. Pending Studies at Discharge: No Stand-Alone Forms: My [facility], Smoking Cessation Medications and DC Order Prescriptions: New cyanocobalamin (vitamin B-12) 1,000 mcg tablet 1,000 mcg PO DAILY Qty: 30 3RF azithromycin 250 mg tablet 250 mg PO DAILY Qty: 3 0RF Rx Instructions: Please take this medication once daily for the next 3 days. This will complete your 5- day course after discharge from the hospital. Continued amoxicillin 500 mg tablet 2,000 mg PO ONCE PRN (Reason: prophylaxis) Qty: 4 2RF Rx Instructions: ONE HOUR PRIOR TO DENTAL PROCEDURE sildenafil [Viagra] 100 mg tablet 50 - 100 mg PO DAILY PRN (Reason: Erectile Dysfunction) Qty: 20 5RF lisinopril 10 mg tablet 10 mg PO QAM Qty: 90 1RF omega 5-wwn-twn-fish oil [Fish Oil] 1,000 (120-180) mg capsule 1 cap PO DAILY glucosamine-chondroitin 500-400 mg capsule 1 cap PO DAILY Rx Instructions: ON HOLD AT PRESENT give with meal/snack acetaminophen [Tylenol Extra Strength] 500 mg Tablet 500 - 1,000 mg PO Q6H PRN (Reason: Pain) ibuprofen [Advil] 200 mg Tablet 200 - 600 mg PO Q6H PRN (Reason: Pain) Held hydroxyurea 500 mg Capsule 500 mg PO QAM Hold Instructions: Resume on 02/12/25. Please resume this medication after meeting your rolling down machine operator outpatient. You may be able to reduce this medication dosage as your platelets have been well controlled. Your rolling down machine operator did state that they would like to meet with you in the next week or so to discuss this medication continuation and managment Discharge Orders: Discharge Order (Routine); Ordered 02/07/25 Ordered By: Hao Mak Admission Data Admit Date/Time: 02/05/25 21:11 Attending Provider: Toy Pickens Admit Provider: Ronak Buchanan Primary Care Provider: Cortney Ward Other Providers: Ronak Buchanan; Tom Flores Resident Activity Tracking Resident Involvement: Resident Care Provided Care Provided: Adult [facility]
[2025-02-07 13:46] VITALS: PULSE 84
== END 2025-02-07 14:12 | disposition home or self-care (01) ==
LOC: SUATTDRO → EDINP 16:39 → ED 16:39 → SUATTDRO 21:11 → 3N 02-06 00:54